=== PATIENT | male | born 1980 | race Two or more races ===

== ENCOUNTER 2023-09-29 19:01 | Emergency (ER) | payer OTHER ==
[~2023-09-29] VITALS: Ht 190.5 cm; Wt 162.7 kg
[2023-09-29 20:01] VITALS: PULSE 89; RESP 18; TEMP 98.5; O2SAT 97
[2023-09-29] MEDS ORDERED: CEPH500C PO (22:27)
[2023-09-29] MEDS ORDERED: IBUP-1455 PO (22:27)
[2023-09-29] MEDS ORDERED: MUPI2OIN2 EX (22:27)
[2023-09-29] MEDS ORDERED: HYDROcodone-ACET 5/325MG TAB PO ONE (22:30)
[2023-09-29 23:20] VITALS: BP 150/80
== END 2023-09-30 00:19 | disposition home or self-care (01) ==
LOC: ER 19:01
DX: S61.512A Laceration without foreign body of left wrist, initial encounter (principal); W26.0XXA Contact with knife, initial encounter; Y93.89 Activity, other specified; Y92.89 Other specified places as the place of occurrence of the external cause; Y99.8 Other external cause status
CPT/HCPCS: 12034